=== PATIENT | female | born 1945 | race Caucasian/White ===

== ENCOUNTER → 2017-09-07 | Outpatient (CLI) | payer OTHER, MEDICARE | END | disposition home or self-care (01) | DX: R26.2 Difficulty in walking, not elsewhere classified (principal); M25.562 Pain in left knee; M25.662 Stiffness of left knee, not elsewhere classified; M62.81 Muscle weakness (generalized); M17.12 Unilateral primary osteoarthritis, left knee | CPT/HCPCS: 97161 GP; 97165 GO; 97530 GP; 97537 GO; G8978 GP; G8979 GP; G8980 GP; G8987 GO; G8988 GO; G8989 GO ==

== ENCOUNTER 2017-09-26 21:21 | Inpatient (IN) | payer OTHER, MEDICARE ==
[~2017-09-26] VITALS: Ht 152.4 cm; Wt 65.4 kg
[~2017-09-26 21:21] MED LIST: IRON325 M1 PO; MICROZIDE12.5 M1 PO; TYLENOL EXTRA500 MG PO
[2017-09-27] MEDS ORDERED: MELATONIN10 M2 PO (07:47)
[2017-09-27 07:49] VITALS: BP 140/91
[2017-09-27 15:52] VITALS: BP 143/79
[2017-09-27 19:56] VITALS: BP 118/64
[2017-09-27 22:03] VITALS: BP 110/59
[2017-09-28] VITALS (7 sets, daily range): BP systolic 102–118; BP diastolic 53–68
[2017-09-28 06:08] LABS: HEMATOCRIT 28.3 % (36.0-46.0); MCV 96.6 FL (83-99)
[2017-09-28 06:32] LABS: ANION GAP 6 MEQ/L (2-14); CHLORIDE 105 MEQ/L (99-109); GFR ESTIMATE (CALCULATED) > 59 mL/min/; GLUCOSE 100 mg/dL (70-99); SAMPLE HEMOLYSIS CHECK 0; SAMPLE ICTERIC CHECK 0; SAMPLE LIPEMIA CHECK 0; SODIUM 140 MEQ/L (136-147); UREA NITROGEN (BUN) 19 mg/dL (9-23)
[2017-09-29 04:50] VITALS: BP 112/64
[2017-09-29 06:44] LABS: HEMATOCRIT 29.3 % (36.0-46.0)
[2017-09-29 08:00] VITALS: BP 120/62
[2017-09-29] MEDS ORDERED: SENNA PLUS TAB1 EACH PO (08:32)
[2017-09-29] MEDS ORDERED: ELIQUIS2.5 MG PO (08:33)
[2017-09-29] MEDS ORDERED: HYDROMORPHONE HC2 MG PO (08:33)
[2017-09-29] MEDS ORDERED: ENDOCET 5-3251 EACH PO (08:33)
[2017-09-29 12:08] VITALS: BP 114/82
== END 2017-09-29 14:45 | DRG 470 ==
LOC: 2SOUTH → ENRESERV 21:21 → 2SOUTH 09-27 07:10 → 3WEST 09-27 15:36 → 2SOUTH 09-27 15:57 → 3WEST 09-29 14:45
PROVIDERS: Orthopaedic Surgery
PROC: 0SRD0J9 Replacement of Left Knee Joint with Synthetic Substitute, Cemented, Open Approach (ICD-10-PCS; principal; 2017-09-27)
DX: M17.12 Unilateral primary osteoarthritis, left knee (principal); I10 Essential (primary) hypertension
CPT/HCPCS: 80048; 85014; 85018; C1713; J0131; J0690; J1100; J1200; J1885; J2405; J2795; J3010; J7050; S0020